=== PATIENT | male | born 1990 | race Caucasian/White ===

== ENCOUNTER 2017-04-30 16:25 | Emergency (ER) | payer SELFPAY ==
[2017-04-30] MEDS ORDERED: Lidocaine 1% 20 ML MDV INJECT ONE (16:44)
[2017-04-30 16:47] VITALS: BP 132/73
--- NOTE | 2017-04-30 16:48 | EDM.PDOC ---
ED HPI GENERAL MEDICAL PROBLEM - General Stated Complaint: RIGHT ARM LARGER CUT ON ELBOW Time Seen by Provider: 04/30/17 16:44 Source of Information: Reports: Patient History Limitations: Reports: No Limitations - History of Present Illness INITIAL COMMENTS - FREE TEXT/NARRATIVE: HISTORY AND PHYSICAL: []26-year-old male presents with a laceration to the inner elbow and small cuts to the inner forearm History of Present Illness: []Patient was removing a toilet and the china shattered and a shard came up his arm. Last tetanus vaccine was 2 and half years ago. Review of Systems: As per history of present illness and below otherwise all systems reviewed and negative. Past medical history: As per history of present illness and as reviewed below otherwise noncontributory. Surgical history: As per history of present illness and as reviewed below otherwise noncontributory. Social history: No reported history of drug or alcohol abuse. Family history: As per history of present illness and as reviewed below otherwise noncontributory. Physical exam: HEENT: Atraumatic, normocehpalic, pupils reactive, negative for conjunctival pallor or scleral icterus, mucous membranes moist, throat clear, neck supple, nontender, trachea midline. Lungs: Clear to auscultation, breath sounds equal bilaterally, chest non tender. Heart: S1S2, regular, negative for clicks, rubs, or JVD. Abdomen: Soft, nondistended, nontender. Negative for masses or hepatossplenmegaly. Negative for costovertebral tenderness. Pelvis: Stable nontender. Genitourinary: Deferred. Rectal: Deferred Extremities: Atraumatic, negative for cords or calf pain. Neurovascular unremarkable. Neuro: Awake, alert, oriented. Cranial nerves II through XII unremarkable. Cerebellum unremarkable. Motor and sensory unremarkable throughout. Exam nonfocal. Laceration 2 cm Sutures 5 with 4-0 1% lidocaine was utilized with 3 mL Patient tolerated all her procedures well laceration edges were well approximated Diagnostics: [xray] Therapeutics: []sutures Impression: [Laceration right inner elbow] laceration Plan: Discharge home Sutures to be removed in 7 days Definitive disposition and diagnosis as appropriate pending reevaluation and review of above. Onset: Today, Sudden Duration: Minutes: Right AC Pain Score (Numeric/FACES): 3 - Related Data Allergies Allergy/AdvReac Type Severity Reaction Status Date / Time cephalexin [From Keflex] Allergy Anaphylactic Verified 04/30/17 16:45 Shock prednisone Allergy Anaphylactic Verified 04/30/17 16:45 Shock Home Meds: Home Meds . [No Known Home Meds] 04/30/17 [History] ED ROS GENERAL - Review of Systems Review Of Systems: ROS reveals no pertinent complaints other than HPI. ED EXAM, GENERAL - Physical Exam Exam: See Below (see dictation) ED GENERAL MEDICAL PROCEDURES - Laceration/Wound Repair Right Anterior Elbow Lac/wound length in cm: 2 Appearance: Subcutaneous, Clean Distal NVT: Neuro & Vascular Intact, No Tendon Injury Anesthetic Type: Local Local Anesthesia - Lidocaine (Xylocaine): 1% Plain Local Anesthetic Volume: 3cc Skin Prep: Saline Exploration/Debridement/Repair: Wound Explored, In a Bloodless Field, Explored to Base Closed with: Sutures Suture Size: 4-0 # of Sutures: 5 Suture Type: Nylon, Interrupted, Simple Drain Placement: No Sterile Dressing Applied: Nurse Tetanus Status Addressed: Yes (2.5 years ago) Complications: No Course - Vital Signs Last Recorded V/S: Last Vital Signs Temp 36.5 C 04/30/17 16:45 Pulse 68 04/30/17 16:45 Resp 18 04/30/17 16:45 BP 132/73 04/30/17 16:45 Pulse Ox 97 04/30/17 16:45 - Orders/Labs/Meds Orders: Active Orders 24 hr Category Date Time Status Elbow Min 3V Rt [CR] Stat Exams 04/30/17 16:44 Taken Meds: Medications Discontinued Medications Generic Name Dose Route Start Last Admin Trade Name Joseph PRN Reason Stop Dose Admin Lidocaine HCl 20 ml 04/30/17 16:44 Xylocaine 1% INJECT 04/30/17 16:45 ONETIME ONE Departure - Departure Time of Disposition: 17:35 Disposition: Home, Self-Care 01 Condition: Good Clinical Impression: Laceration - Discharge Information Referrals: PCP,None [Primary Care Provider] - Additional Instructions: The following information is given to patients seen in the emergency department who are being discharged to home. This information is to outline your options for follow-up care. We provide all patients seen in our emergency department with a follow-up referral. The need for follow-up, as well as the timing and circumstances, are variable depending upon the specifics of your emergency department visit. If you don't have a primary care physician on staff, we will provide you with a referral. We always advise you to contact your personal physician following an emergency department visit to inform them of the circumstance of the visit and for follow-up with them and/or the need for any referrals to a consulting specialist. The emergency department will also refer you to a specialist when appropriate. This referral assures that you have the opportunity for followup care with a specialist. All of these measure are taken in an effort to provide you with optimal care, which includes your followup. Under all circumstances we always encourage you to contact your private physician who remains a resource for coordinating your care. When calling for followup care, please make the office aware that this follow-up is from your recent emergency room visit. If for any reason you are refused follow-up, please contact the [facility] emergency department at and asked to speak to the emergency department charge nurse. Sutures to be removed in 7 days Signs of infection including redness, heat, swelling, and or pustular exudates please be seen immediately should these occur Light duty 2 days work - My Orders Last 24 Hours: My Active Orders 04/30/17 16:44 Elbow Min 3V Rt [CR] Stat - Assessment/Plan Last 24 Hours: My Active Orders 04/30/17 16:44 Elbow Min 3V Rt [CR] Stat
--- NOTE | 2017-05-01 09:30 | CR ---
EXAM DATE: 04/30/17 PATIENT'S AGE: 26 Patient: PAOLA DEL CID Facility: [place], [place] Site . Site : 1990 Study: XRay Extremity Right [id number] elbow-04/30/2017 5:03:56 PM Ordering Physician: Doctor Lozano Final Report: HISTORY: Cut on elbow. FINDINGS/IMPRESSION: Three views of the right elbow did not reveal a sail sign or joint effusion. There is normal alignment present. No fracture or dislocation is seen. The lateral view demonstrates a 1.4 cm V shaped lucency within the superficial soft tissues of the antecubital fossa. There are 3 or 4 tiny radiopaque density is seen in the adjacent subcutaneous tissues difficult to exclude as tiny foreign bodies. Dictated by Linda Obrien MD @ 04/30/2017 5:50:16 PM Dictated by: Linda Obrien MD @ 04/30/2017 17:50:37 (Electronic Signature) Report Signed by Proxy. [email or web address]
== END 2017-04-30 17:53 | disposition home or self-care (01) ==
LOC: MW.ED 16:25
DX: S51.011A Laceration without foreign body of right elbow, initial encounter (principal); Z88.1 Allergy status to other antibiotic agents; Z88.8 Allergy status to other drugs, medicaments and biological substances; W45.8XXA Other foreign body or object entering through skin, initial encounter
CPT/HCPCS: 12001; 73080-26-RT; 73080-RT; 99282; 99283